=== PATIENT | female | born 1970 | race Caucasian/White ===

== ENCOUNTER 2016-10-07 09:12 | Emergency (ER) | payer OTHER ==
[2016-10-07 11:11] VITALS: BP 133/71
--- NOTE | 2016-10-07 11:22 | ERNOTE ---
ENT HPI Date of Service: 10/07/16 Presenting Symptoms: other - sore throat Time Seen by Provider: 10/07/16 10:35 Source: patient Exam Limitations: no limitations - Immun/Allergies/Home Medications Immunizations: IMMUNIZATION HX Immunizations Up to Date Yes History of Influenza Vaccine No Hx Pneumococcal Vaccination No Allergies/Adverse Reactions: Allergies Allergy/AdvReac Type Severity Reaction Status Date / Time No Known Allergies Allergy Verified 10/07/16 09:57 Home Medications: HOME MEDICATIONS Citalopram Hydrobromide [Celexa] 20 mg PO DAILY 02/21/13 [Last Taken Unknown] Gemfibrozil [Lopid] 600 mg PO BID 02/21/13 [Last Taken Unknown] Pramipexole Di-HCl [Mirapex] 0.25 mg PO HS 02/21/13 [Last Taken Unknown] Omeprazole Magnesium [Prilosec Otc] 20 mg PO DAILY 02/26/13 [Last Taken Unknown] Fluticasone Propionate [Flonase] 2 spray NS DAILY PRN 02/09/15 [Last Taken Unknown] Levothyroxine Sodium [Synthroid] 137 mcg PO DAILY 02/09/15 [Last Taken Unknown] Aspirin [Milton Chewable Aspirin] 81 mg PO DAILY 07/18/16 [Last Taken Unknown] Naproxen [Naprosyn] 500 mg PO BID PRN #60 tab 10/07/16 [Last Taken Unknown] Penicillin V Potassium [Pen-Vee K] 500 mg PO QID #40 tab 10/07/16 [Last Taken Unknown] - History of Present Illness Narrative: This is a 46 y/o woman with environmental allergies. She has had a dry cough for three months, but doesn't know why. There is no history of lung disease or of smoking. She's had a sore throat since yesterday. Has not taken her temperature. No one else ill at home. Prearrival Treatment: Present: over the counter meds Modifying Factors - Improves: Reports: nothing Modifying Factors - Worsens: Reports: other - swallowing Associated Symptoms - ENT: Reports: malaise, poor fluid intake, cough, sore throat, nasal congestion/drainage Prior Treament: Denies: recently seen, currently on antibiotics Review of Systems - Review of Systems Constitutional: Present: no symptoms reported EYE: Present: no symptoms reported ENT: Present: See HPI Respiratory: Present: cough Cardiology: Present: no symptoms reported Gastrointestinal/Abdominal: Present: no symptoms reported Genitourinary: Present: no symptoms reported Musculoskeletal: Present: no symptoms reported Skin: Present: no symptoms reported Neurological: Present: no symptoms reported Endocrine: Present: no symptoms reported Hematologic/Lymphatic: Present: no symptoms reported Psych: Present: no symptoms reported All Other Systems: All systems neg except as marked - Patient's Past Medical History Patient History - Medical: Depression, GERD, Hypothyroidism Patient History - Cardiac/Respiratory: Hyperlipidemia Patient History - Cancer: No Hx of Cancer Patient History - Surgical Procedures: , Tubal Ligation, Other Patient History - Other: None - Family History Mother Family History - Medical: Hypothyroidism, Rheumatoid Arthritis Father Family History - Medical: Diabetes Type 2 Insulin Dependent, Other Family History - Cardiac/Respiratory: Hypertension - Social History Living Situations: spouse Abuse History: No History of abuse Psych History: Hx of Depression Smoking Status: Never smoker Have you smoked in the past 12 months: No Alcohol Use: occasionally Drug Use: none - Immunizations Immunizations Up to Date: Yes Hx Pneumococcal Vaccination: No History of Influenza Vaccine: No Physical Exam - Physical Exam General Appearance: Present: wd/wn, alert, no apparent distress Eye Exam: Normal inspection: bilateral, PERRL: bilateral, EOMI: bilateral Ears, Nose, Throat: Present: normal ENT inspection, hearing grossly normal Neck: Present: normal inspection, nontender Respiratory: Present: no respiratory distress, normal breath sounds Cardiovascular/Chest: Present: regular rate, rhythm, no murmur Gastrointestinal/Abdominal: Present: normal bowel sounds, nontender, nondistended, soft, no organomegaly Back Exam: Present: normal inspection Extremity Exam: Present: normal inspection, no edema Neurological Exam: Present: alert, oriented, normal mood/affect Skin Exam: Present: normal color, warm/dry Lymphatic Exam: Present: no adenopathy ED Progress - Results and Orders Patient's Lab Results:: I have reviewed the patient's lab results. - Vital Signs Patient's Vital Signs:: I have reviewed the patient's vital signs. Vital Signs: Vital Signs 10/07/16 10/07/16 09:55 11:10 Temperature 36.5 C Pulse Rate 85 86 Respiratory 14 16 Rate Blood Pressure 133/78 133/71 O2 Sat by Pulse 97 99 Oximetry - Progress/Reassessment Chief Complaint: Sore Throat Departure Clinical Impression: Strep throat, Chronic cough - Departure Disposition: Home self-care Instructions: Strep Throat, [id number], Cough, Adult, [id number] Additional Instructions: Follow up with your doctor in 1 -2 weeks. Referrals: Kika Chavez MD [Primary Care Provider] - Prescriptions: Naproxen [Naprosyn] 500 mg PO BID PRN #60 tab PRN Reason: Pain Penicillin V Potassium [Pen-Vee K] 500 mg PO QID #40 tab
== END 2016-10-07 11:44 | disposition home or self-care (01) ==
LOC: ER 09:12
DX: J02.0 Streptococcal pharyngitis (principal); R05 Cough

== ENCOUNTER 2017-10-30 17:32 | Emergency (ER) | payer BC, OTHER ==
[2017-10-30 18:01] VITALS: BP 147/89
--- NOTE | 2017-10-30 20:45 | ERNOTE ---
Medical Problem HPI - Narrative Date of Service: 10/30/17 - General Chief Complaint: Laceration Time Seen by Provider: 10/30/17 19:56 Source: patient, RN notes reviewed Exam Limitations: no limitations - Immun/Allergies/Home Medications Immunizations: IMMUNIZATION HX Immunizations Up to Date No: unsure History of Influenza Vaccine No Hx Pneumococcal Vaccination No Allergies/Adverse Reactions: Allergies No Known Allergies Allergy (Verified 10/07/16 09:57) Home Medications: HOME MEDICATIONS Citalopram Hydrobromide [Celexa] 20 mg PO DAILY 02/21/13 [Last Taken Unknown] Gemfibrozil [Lopid] 600 mg PO BID 02/21/13 [Last Taken Unknown] Pramipexole Di-HCl [Mirapex] 0.25 mg PO HS 02/21/13 [Last Taken Unknown] Omeprazole Magnesium [Prilosec Otc] 20 mg PO DAILY 02/26/13 [Last Taken Unknown] Fluticasone Propionate [Flonase] 2 spray NS DAILY PRN 02/09/15 [Last Taken Unknown] Levothyroxine Sodium [Synthroid] 137 mcg PO DAILY 02/09/15 [Last Taken Unknown] Aspirin [Milton Chewable Aspirin] 81 mg PO DAILY 07/18/16 [Last Taken Unknown] Naproxen [Naprosyn] 500 mg PO BID PRN #60 tab 10/07/16 [Last Taken Unknown] Penicillin V Potassium [Pen-Vee K] 500 mg PO QID #40 tab 10/07/16 [Last Taken Unknown] - History of Present History Narrative: Yumiko is a 47 year old female who presents to the ED for a laceration to her left thumb. This occurred just [employer] while she was slicing vegetables at home. Review of Systems - Review of Systems Constitutional: Absent: recent illness, fever EYE: Present: no symptoms reported ENT: Present: no symptoms reported Respiratory: Present: no symptoms reported Cardiology: Present: no symptoms reported Gastrointestinal/Abdominal: Present: no symptoms reported Genitourinary: Present: no symptoms reported Musculoskeletal: Absent: joint pain, joint swelling Skin: Absent: rash, lesions, change in color Neurological: Absent: weakness, numbness, tingling Endocrine: Present: no symptoms reported Hematologic/Lymphatic: Absent: easy bruising, easy bleeding Psych: Present: no symptoms reported - Patient's Past Medical History Patient History - Medical: Depression, GERD, Hypothyroidism Patient History - Cardiac/Respiratory: Hyperlipidemia Patient History - Cancer: No Hx of Cancer Patient History - Surgical Procedures: , Tubal Ligation, Other Patient History - Other: None LMP (females 10-50): this week - Family History Mother Family History - Medical: Hypothyroidism, Rheumatoid Arthritis Father Family History - Medical: Diabetes Type 2 Insulin Dependent, Other Family History - Cardiac/Respiratory: Hypertension - Social History Living Situations: home Abuse History: No History of abuse Psych History: Hx of Depression Smoking Status: Never smoker Have you smoked in the past 12 months: No Do you dip or chew tobacco: No Alcohol Use: rarely Drug Use: none - Immunizations Immunizations Up to Date: Yes - last tetanus 2011 Hx Pneumococcal Vaccination: No History of Influenza Vaccine: No Physical Exam - Physical Exam General Appearance: Present: wd/wn, alert, no apparent distress Respiratory: Present: no respiratory distress, no accessory muscle use Cardiovascular/Chest: Present: normal peripheral pulses Extremity Exam: Present: normal inspection, normal range of motion, no edema Neurological Exam: Present: alert, oriented, normal mood/affect, no motor/ sensory deficits Skin Exam: Present: normal color, warm/dry, other - small laceration to left thumb near nail, no nail damage ED Progress - Vital Signs Patient's Vital Signs:: I have reviewed the patient's vital signs. Vital Signs: Vital Signs 10/30/17 17:58 Temperature 36 C L Pulse Rate 85 Respiratory 20 Rate Blood Pressure 147/89 O2 Sat by Pulse 96 Oximetry - Progress/Reassessment Chief Complaint: Laceration Progress:: Improved Procedures Left Distal Finger 1st Digit Anesthesia: 1% Lidocaine I & D Prep: betadine prep Length of Repair/Wound (cm): 1 Wound's Depth/Shape: into subcutaneous, linear, flap Wound Explored: clean, to base, in bloodless field, no foreign body Wound Intervention: irrigated w/saline Distal NVT: neuro/vasc intact, no tendon injury Wound Repaired With: sutures Suture Size/Type: 4-0 Number of Sutures: 2 Layer Closure: Simple Wound Dressing: sterile dressing applied Complications: Pt elvin procedure well Left Distal Finger 1st Digit Anesthesia: 1% Lidocaine Departure Clinical Impression: Thumb laceration Qualifiers: Encounter type: initial encounter Damage to nail status: without damage Foreign body presence: without foreign body Laterality: left Qualified Code(s): S61.012A - Laceration without foreign body of left thumb without damage to nail , initial encounter - Departure Disposition: Home Follow Up Needed Condition: Good Instructions: Sutured Wound Care, [id number] Additional Instructions: Keep wound dry for 24 hours. You can then wash it gently with soap and water as needed, but do not soak in water for prolonged periods of time. Apply antibiotic ointment and bandage as needed. Have sutures removed in 7 days. Referrals: Kika Chavez MD [Primary Care Provider] -
== END 2017-10-30 20:50 | disposition home or self-care (01) ==
LOC: ER 17:32
PROC: 0JQK0ZZ Repair Left Hand Subcutaneous Tissue and Fascia, Open Approach (ICD-10-PCS; principal; 2017-10-30)
DX: S61.012A Laceration without foreign body of left thumb without damage to nail, initial encounter (principal); W27.4XXA Contact with kitchen utensil, initial encounter; Y93.G1 Activity, food preparation and clean up; Y92.009 Unspecified place in unspecified non-institutional (private) residence as the place of occurrence of the external cause